=== PATIENT | male | born 1960 | race Caucasian/White ===

== ENCOUNTER → 2018-03-24 | Outpatient (CLI) | payer OTHER ==
--- NOTE | 2018-03-24 16:17 | XR ---
Third digit right hand HISTORY: Palpable mass 2 views of the third digit of the right hand. Soft tissue swelling is present. Bone mineralization, joint spaces and alignment are maintained. IMPRESSION: No fracture or dislocation. Soft tissue swelling.
== END | disposition home or self-care (01) ==
LOC: RADXRYALE 15:52
PROVIDERS: ATTEND Physician Assistant Medical
DX: A28.1 Cat-scratch disease (principal); L03.011 Cellulitis of right finger

== ENCOUNTER → 2024-10-05 | Outpatient (CLI) | payer BC ==
--- NOTE | 2024-10-05 15:41 | CT ---
EXAMINATION TYPE: CT abdomen pelvis w con DATE OF EXAM: 10/05/2024 COMPARISON: None CLINICAL INDICATION: Male, 64 years old with history of R10.823 RIGHT LOWER QUADRANT REBOUND ABDOMINA L TEN; PHH, abdominal pain x 5 days TECHNIQUE: Performed with Oral Contrast and with IV Contrast, patient injected with 100 mL of Isovue 300. CT DLP: 1277.[address] CTDI: mGy Automated exposure control for dose reduction was used. FINDINGS: The lung bases are clear. The gallbladder is normal without distention, wall thickening, pericholecystic fluid or gallstones. T here is no biliary ductal dilatation. There is no focal mass or organomegaly involving the liver, pancreas, spleen or adrenal glands. There is marked steatosis of the liver. There is no solid renal mass or hydronephrosis and there is homogeneous contrast enhancement of the r enal parenchyma. The caliber the abdominal aorta is normal is no retroperitoneal adenopathy or hemorr jarad. There are scattered diverticulum of the sigmoid colon and there is a segment of ill-defined sigmoid c olon with very colic fat infiltration. The findings are consistent with acute sigmoid diverticulitis. There is no abscess. There is no free intraperitoneal air. There is no bowel obstruction No pelvic mass, free fluid, abscess or adenopathy. The osseous structures and soft tissues are intact. IMPRESSION: 1. Acute diverticulitis of the sigmoid colon as described above. No bowel obstruction, abscess or juanito e intraperitoneal air or fluid. 2. Marked liver steatosis. [facility], , 10/05/2024 3:39 PM
== END | disposition home or self-care (01) ==
LOC: RADCTMAIN 13:18
PROVIDERS: ATTEND Family Medicine
DX: K57.32 Diverticulitis of large intestine without perforation or abscess without bleeding (principal); K76.0 Fatty (change of) liver, not elsewhere classified; R10.823 Right lower quadrant rebound abdominal tenderness
CPT/HCPCS: 74177; Q9967